=== PATIENT | male | born 1980 | race Asian ===

== ENCOUNTER 2022-02-27 15:33 | Emergency (ER) | payer OTHER, BC ==
[~2022-02-27] VITALS: Ht 167.6 cm; Wt 81.7 kg
[2022-02-27] MEDS ORDERED: HYDR1TAB94 PO (17:51)
== END 2022-02-27 18:11 | disposition home or self-care (01) ==
LOC: ER 15:33
DX: S52.511A Displaced fracture of right radial styloid process, initial encounter for closed fracture (principal); S52.611A Displaced fracture of right ulna styloid process, initial encounter for closed fracture; V86.99XA Unspecified occupant of other special all-terrain or other off-road motor vehicle injured in nontraffic accident, initial encounter; Z88.6 Allergy status to analgesic agent
CPT/HCPCS: 73110; J1885